=== PATIENT | male | born 1955 | race Hispanic/Latino ===

== ENCOUNTER 2017-10-21 16:49 | Emergency (ER) | payer OTHER ==
[2017-10-21 17:05] VITALS: RESP 18; TEMP 98.2
[2017-10-21] MEDS ORDERED: Folic Acid 1 MG, Thiamine 100 MG, Multivitamin (MVI) 10 ML in Dextrose 5% In Water 1,00... IV ONE (17:17)
[2017-10-21 17:54] LABS: BASO # 0.06 K/mm3 (0.0-2.0); EOS # 0.2 (0.0-0.7); GRAN # 2.97 (1.4-6.5); GRAN % 51.9 % (50.0-68.0); HEMOGLOBIN 15.1 g/dL (14.0-18.0); LYMPH % 34.8 % (22.0-35.0); MEAN CELL VOLUME 93.1 fl (80.0-105.0); MEAN CORPUSCULAR HEMOGLOBIN 32.5 pg (25.0-35.0); MEAN PLATELET VOLUME 10.2 fl (7.0-11.0); MONO # 0.5 (0.1-0.6); MONO % 9.3 % (1.0-6.0); RBC 4.64 10^6/uL (3.5-6.1); RED CELL DISTRIBUTION WIDTH 12.8 % (11.5-14.5); WHITE BLOOD COUNT 5.7 10^3/ul (4.5-11.0)
--- NOTE | 2017-10-21 18:02 | ED PDOC ---
Arrival/HPI - General Chief Complaint: Syncope Time Seen by Provider: 10/21/17 17:16 Historian: Patient - History of Present Illness Narrative History of Present Illness (Text): 61 y/o male w/ pmhx of relative chronic alcoholism, poor medical follow up ( last employment physical 5 years ago, presents s/p witnessed syncope and collapse at the family lunch table after drinking [employer] unquantified amount as well as beer with lunch , reportedly his only other hydration was a little soda today. Pt denies any antecddent cardiopulmonary symptoms of chest pain/palpitations/sob nor recent fluid losses of nausea and/or vomiting. Pt states that he had taken a 1 month break from alcohol imbibement, bu latisha been drinking heavily yesterday and hadn't hydrated excepting 1-2 cups of soda in am. 10/21/17 17:58 10/21/17 20:15 Past Medical History - Psychiatric Hx Substance Use: No - Anesthesia Hx Anesthesia: No Hx Anesthesia Reactions: No Hx Malignant Hyperthermia: No Family/Social History - Physician Review Nursing Documentation Reviewed: Yes Family/Social History: Unknown Family HX Smoking Status: Heavy Smoker > 10 Cigarettes Daily Hx Alcohol Use: Yes Frequency of alcohol use: Socially Hx Substance Use: No Allergies/Home Meds Allergies/Adverse Reactions: Allergies No Known Allergies Allergy (Verified 10/21/17 16:59) Review of Systems - Physician Review All systems were reviewed & negative as marked: Yes - Review of Systems Systems not reviewed;Unavailable: Intoxicated Constitutional: Normal Eyes: Normal ENT: Normal Respiratory: Normal Cardiovascular: Normal Gastrointestinal: Abdominal Pain, Other (occasional luq abdominal pain unclearly characterized due to aforelisted caveat ) Genitourinary Male: Normal Musculoskeletal: Normal Skin: Normal Neurological: Normal Endocrine: Normal Hemo/Lymphatic: Normal Psychiatric: Normal Physical Exam Vital Signs Reviewed: Yes Vital Signs Temp Pulse Resp BP Pulse Ox 10/21/17 16:59 98.2 F 94 H 18 146/93 H 95 Temperature: Afebrile Blood Pressure: Normal Pulse: Regular Respiratory Rate: Normal Appearance: Positive for: Well-Appearing, Non-Toxic, Comfortable Pain Distress: None Mental Status: Positive for: Alert and Oriented X 3 - Systems Exam Head: Present: Atraumatic, Normocephalic, Other (+ etob ) Pupils: Present: PERRL Extroacular Muscles: Present: EOMI Conjunctiva: Present: Normal Mouth: Present: Moist Mucous Membranes Neck: Present: Normal Range of Motion Respiratory/Chest: Present: Clear to Auscultation, Good Air Exchange. No: Respiratory Distress, Accessory Muscle Use Cardiovascular: Present: Regular Rate and Rhythm, Normal S1, S2. No: Murmurs Abdomen: Present: Normal Bowel Sounds. No: Tenderness, Distention, Peritoneal Signs Back: Present: Normal Inspection Upper Extremity: Present: Normal Inspection. No: Cyanosis, Edema Lower Extremity: Present: Normal Inspection. No: Edema Neurological: Present: GCS=15, CN II-XII Intact, Speech Normal, Motor Func Grossly Intact, Normal Sensory Function, Normal Cerebellar Funct, Norm Deep Tendon Reflexes Skin: Present: Warm, Dry, Normal Color. No: Rashes Psychiatric: Present: Alert, Oriented x 3, Normal Insight, Normal Concentration Medical Decision Making ED Course and Treatment: 61 y/o male w/ /no endorsed pmhx ofther than chronci alcoholism presents + etob , after witnessed dsyncope, after drinking w/ little hydration today risk stratify w/ labs ivf mvi head ct cxr serial neurolgical exams 10/21/17 18:08 10/21/17 20:53 pt feeling better, and adamantly refusing to stay , opting instead for outptatient continued workup in the [facility]. Pt was edeucated as to importance of workups such as carotid doppler/ ttecho to complete his syncopal workup , as well as alcohol moderation and the importance of hydration. - Lab Interpretations Lab Results: 10/21/17 17:40 10/21/17 17:40 Lab Results 10/21/17 18:27: Urine Opiates Screen Negative, Urine Methadone Screen Negative, Ur Barbiturates Screen Negative, Ur Phencyclidine Scrn Negative, Ur Amphetamines Screen Negative, U Benzodiazepines Scrn Negative, U Oth Cocaine Metabols Negative, U Cannabinoids Screen Negative 10/21/17 18:27: Urine Color Light yellow, Urine Appearance Clear, Urine pH 6.0, Ur Specific [place] 1.025, Urine Protein Negative, Urine Glucose (UA) Negative, Urine Ketones Negative, Urine Blood Negative, Urine Nitrate Negative, Urine Bilirubin Negative, Urine Urobilinogen 0.2, Ur Leukocyte Esterase Negative 10/21/17 17:40: Alcohol, Quantitative 102 H 10/21/17 17:40: PT 12.6 H, INR 1.10 H, APTT 36.7 H 10/21/17 17:40: Sodium 140, Potassium 4.3, Chloride 106, Carbon Dioxide 22, Anion Gap 16, BUN 21, Creatinine 1.0, Est GFR ( Amer) > 60, Est GFR (Non- Af Amer) > 60, Random Glucose 98, Calcium 9.5, Magnesium 2.1, Total Bilirubin 0.7, AST 42, ALT 39, Alkaline Phosphatase 116, Lactate Dehydrogenase 643, Total Creatine Kinase 62, Troponin I < 0.01, NT-Pro-B Natriuret Pep 48.2, Total Protein 8.0, Albumin 4.3, Globulin 3.8, Albumin/Globulin Ratio 1.1, Triglycerides 466 H, Cholesterol 209 H, LDL Cholesterol Direct 118, HDL Cholesterol 38 10/21/17 17:40: WBC 5.7, RBC 4.64, Hgb 15.1, Hct 43.2, MCV 93.1, MCH 32.5, MCHC 35.0, RDW 12.8, Plt Count 229, MPV 10.2, Gran % 51.9, Lymph % (Auto) 34.8, Peach % (Auto) 9.3 H, Eos % (Auto) 3.0, Baso % (Auto) 1.0, Gran # 2.97, Lymph # (Auto ) 2.0, Peach # (Auto) 0.5, Eos # (Auto) 0.2, Baso # (Auto) 0.06 - RAD Interpretation Radiology Orders: 10/21/17 17:17 CHEST PORTABLE [RAD] Stat 10/21/17 18:27 HEAD W/O CONTRAST [CT] Stat - Medication Orders Current Medication Orders: Folic Acid 1 mg/ Thiamine HCl 100 mg/ Multivitamins/Vitamin C 10 ml/ Dextrose 1 ,011.2 mls @ 100 mls/hr IV ONCE ONE Stop: 10/22/17 03:23 Last Admin: 10/21/17 18:21 Dose: 100 mls/hr eMAR Start Stop Document 10/21/17 18:21 EQ (Rec: 10/21/17 18:21 EQ [id number]) Intravenous Solution Start Date 10/21/17 Start Time 18:21 Disposition/Present on Arrival - Present on Arrival Any Indicators Present on Arrival: No History of DVT/PE: No History of Uncontrolled Diabetes: No Urinary Catheter: No History of Decub. Ulcer: No History Surgical Site Infection Following: None - Disposition Have Diagnosis and Disposition been Completed?: Yes Diagnosis: Alcohol intoxication, Syncope and collapse, Dehydration Disposition: HOME/ ROUTINE Disposition Time: 20:47 Patient Plan: Discharge Patient Problems: Current Active Problems Problem Status Onset Alcohol intoxication Acute Dehydration Acute Syncope and collapse Acute Condition: IMPROVED Discharge Instructions (ExitCare): Syncope (ED), Syncope (Fainting), Dehydration, Adult (DC), Alcohol Abuse and Alcoholism (DC) Print Language: NIUEAN Additional Instructions: Please modify your diet as your first line against fighting jhigh cholesterol avoiding foods such as eggs /red meats and butter. Please be advsied that your "passsing out" today was most likley due to dehydration and alcoohl today , however, there are other casues at your age of ddiznees that should be investigated shortly as an aoutpatient such as ultrasound of your carotid arteries and/or sonogram of your heart You are advised to follow up win the [facility] to continue this said workup. Your periodic stomach pains can be followed up by a supervisor ornamental ironworking whom might choose to scope your stomach to check for ulcers and/or gastritis. Prescriptions: Famotidine 20 mg PO BID PRN #60 tablet PRN Reason: Dyspepsia Referrals: Marysol Barth, [Primary Care Provider] - Follow up with primary Nolan Noel MD [Staff Provider] - Follow up with primary [facility] [Outside] - Follow up with primary Forms: Ruth Kunstadter – [employer] (Welsh)
[2017-10-21 18:07] LABS: INR 1.1 (0.93-1.08); PARTIAL THROMBOPLASTIN TIME 36.7 Seconds (25.1-36.5); PROTHROMBIN TIME 12.6 SECONDS (9.4-12.5)
[2017-10-21 18:09] LABS: ALB/GLOB RATIO 1.1 (1.1-1.8); ALBUMIN 4.3 g/dL (3.0-4.8); ALT/SGPT 39 U/L (7-56); AST/SGOT 42 U/L (17-59); BLOOD UREA NITROGEN 21 mg/dL (7-21); CALCIUM 9.5 mg/dL (8.4-10.5); GFR AFRICAN-AMERICAN > 60; GFR NON-AFRICAN AMERICAN > 60; HDL CHOLESTEROL 38 mg/dL (29-60)
[2017-10-21 18:19] LABS: LDL CHOLESTEROL 118 mg/dL (0-129)
[2017-10-21 18:22] LABS: B-TYPE NATRIURETIC PEPTIDE 48.2 pg/mL (0-450); TROPONIN I < 0.01 ng/mL
[2017-10-21 18:34] LABS: URINE BILIRUBIN NEGATIVE (NEGATIVE); URINE BLOOD NEGATIVE (NEGATIVE); URINE GLUCOSE (UA) NEGATIVE (NEGATIVE); URINE LEUKOCYTE ESTERASE NEGATIVE Leu/uL (NEGATIVE); URINE PROTEIN NEGATIVE mg/dL (<30 mg/dL); URINE UROBILINOGEN 0.2 E.U./dL (<1 E.U./dL)
[2017-10-21 18:35] LABS: URINE APPEARANCE CLEAR (CLEAR); URINE COLOR LIGHT YELLOW (YELLOW)
[2017-10-21 18:54] LABS: OPIATES, UR NEGATIVE (NEGATIVE)
[2017-10-21 18:55] LABS: BARBITURATES, UR NEGATIVE (NEGATIVE); BENZODIAZEPINES, UR NEGATIVE (NEGATIVE); PHENCYCLIDINE, UR NEGATIVE (NEGATIVE)
[2017-10-21 22:42] VITALS: BP 132/82; PULSE 85; O2SAT 100
--- NOTE | 2017-10-22 08:11 | CT ---
PROCEDURE: CT HEAD WITHOUT CONTRAST. HISTORY: syncope COMPARISON: None available. TECHNIQUE: Axial computed tomography images were obtained through the head/brain without intravenous contrast. Radiation dose: Total exam DLP = 800 mGy-cm. This CT exam was performed using one or more of the following dose reduction techniques: Automated exposure control, adjustment of the mA and/or kV according to patient size, and/or use of iterative reconstruction technique. FINDINGS: HEMORRHAGE: No intracranial hemorrhage. BRAIN: No mass effect or edema. No atrophy or chronic microvascular ischemic changes. VENTRICLES: Unremarkable. No hydrocephalus. CALVARIUM: Unremarkable. PARANASAL SINUSES: Unremarkable as visualized. No significant inflammatory changes. MASTOID AIR CELLS: Unremarkable as visualized. No inflammatory changes. OTHER FINDINGS: The report concurs with the preliminary [facility] report IMPRESSION: No acute findings
--- NOTE | 2017-10-22 09:35 | RAD ---
Portable chest radiograph AP frontal projection was obtained. Findings: The lungs are well inflated. There is severe pulmonary venous congestion. No focal consolidation. The heart is normal in size. The visualized bones are within normal limits for the patient's age. Impression: Severe pulmonary venous congestion. No active pulmonary disease.
--- NOTE | 2017-10-22 19:42 | CARD ---
APPROVED REPORT EKG Measurement Heart [id number] <Conclusion> Normal sinus rhythm Normal ECG
== END 2017-10-21 21:00 | disposition home or self-care (01) ==
LOC: ED 16:49
DX: F10.129 Alcohol abuse with intoxication, unspecified (principal); Y90.5 Blood alcohol level of 100-119 mg/100 ml; E86.0 Dehydration; R55 Syncope and collapse; F17.210 Nicotine dependence, cigarettes, uncomplicated
CPT/HCPCS: 70450; 71045; 80053; 80061; 80320; 80324; 80345; 80346; 80349; 80353; 80358; 80361; 81003; 82550; 83036; 83615; 83735; 83880; 83992; 84484; 85025; 85610; 85730; 93005; 96374; 99285; J3411; J7070